=== PATIENT | female | born 1960 | race Caucasian/White ===

== ENCOUNTER 2022-01-12 09:29 | Emergency (ER) | payer MEDICAID ==
[~2022-01-12] VITALS: Ht 157.5 cm; Wt 85.0 kg
[~2022-01-12 09:29] MED LIST: NOCURR
[2022-01-12] MEDS ORDERED: GLIP10TA10 PO (09:42)
[2022-01-12] MEDS ORDERED: ATOR10TA84 PO (09:42)
[2022-01-12] MEDS ORDERED: METF-1185 PO (09:42)
[2022-01-12] MEDS ORDERED: LISI-892 PO (09:42)
[2022-01-12] MEDS ORDERED: KETOROLAC TROMETHAMINE 30 MG/ML VIAL IM ONE (11:45)
[2022-01-12] MEDS ORDERED: METHOCARBAMOL 500 MG TABLET PO ONE (11:45)
[2022-01-12] MEDS ORDERED: GABAPENTIN 300 MG CAPSULE PO ONE (11:45)
[2022-01-12] MEDS ORDERED: GABA-1181 PO (12:05)
[2022-01-12] MEDS ORDERED: NAPR-1025 PO (12:05)
[2022-01-12] MEDS ORDERED: METH-659 PO (12:05)
[2022-01-12 12:24] VITALS: BP 142/65
== END 2022-01-12 12:26 | disposition home or self-care (01) ==
LOC: EMS 09:31
DX: S46.011A Strain of muscle(s) and tendon(s) of the rotator cuff of right shoulder, initial encounter (principal); M75.21 Bicipital tendinitis, right shoulder; E11.9 Type 2 diabetes mellitus without complications; I10 Essential (primary) hypertension; E78.00 Pure hypercholesterolemia, unspecified; X58.XXXA Exposure to other specified factors, initial encounter; Y93.89 Activity, other specified; Y92.89 Other specified places as the place of occurrence of the external cause; Y99.8 Other external cause status
CPT/HCPCS: 99283; 82962; 73030; 96372; J1885